=== PATIENT | male | born 1990 ===

== ENCOUNTER 2017-01-23 14:04 | Observation (INO) | payer MEDICAID ==
[2017-01-23] MEDS ORDERED: Sodium Chloride 0.9% 1,000 ML IV STA (15:04)
[2017-01-23] MEDS ORDERED: Iohexol 240 (50 ml) PO STA (15:04)
[2017-01-23] MEDS ORDERED: Sodium Chloride 0.9% 1,000 ML ONE ×2 (15:24→20:39)
[2017-01-23] MEDS ORDERED: Iohexol 240 (50 ml) ONE (15:24)
[2017-01-23 15:29] LABS: BASO # 0.1 K/uL (0.0-0.2); BASO % 0.3 % (0.0-2.0); HEMATOCRIT 46.3 % (35.0-51.0); LYMPH # 1.2 K/uL (1.0-4.3); MEAN CELL VOLUME 79.8 fL (80.0-94.0); MEAN CORPUSCULAR HEMOGLOBIN 25.7 pg (27.0-31.0); MEAN CORPUSCULAR HGB CONC 32.2 g/dL (33.0-37.0); MEAN PLATELET VOLUME 11.2 fL (7.2-11.7); MONO # 1.4 K/uL (0.0-0.8); MONO % 7.3 % (0.0-10.0); PLATELET COUNT 228 K/uL (130-400); RED CELL DISTRIBUTION WIDTH 12.8 % (11.5-14.5); WHITE BLOOD COUNT 19.8 K/uL (4.8-10.8)
[2017-01-23 15:38] LABS: CHLORIDE 102 mmol/L (98-107); POTASSIUM 4.8 mmol/L (3.6-5.2); SODIUM 139 mmol/L (132-148)
[2017-01-23 15:40] LABS: AST/SGOT 43 U/L (17-59); BILIRUBIN,TOTAL 1.9 mg/dL (0.2-1.3); CARBON DIOXIDE 21 mmol/L (22-30); GFR AFRICAN-AMERICAN > 60
[2017-01-23 15:41] LABS: ALB/GLOB RATIO 1.5 (1.0-2.1); ALKALINE PHOSPHATASE 46 U/L (38-126); ALT/SGPT 39 U/L (21-72); BLOOD UREA NITROGEN 9 mg/dL (9-20); CALCIUM 9.6 mg/dl (8.6-10.4); GLUCOSE,RANDOM 98 mg/dL (75-110); TOTAL PROTEIN 8.5 g/dL (6.3-8.3)
[2017-01-23 16:04] LABS: NEUTROPHIL 84 % (50-75); TOTAL CELLS COUNTED 100
[2017-01-23] MEDS ORDERED: Iohexol 350mg/ml 100 ML ONE (16:21)
--- NOTE | 2017-01-23 16:40 | C.PDOC ---
History Of Present Illness 27 year old male, with a history of Gastritis and Schizophrenia, presents to the ED with complaints of a constant stabbing left sided abdominal pain radiating to the lower back beginning at 5:30am with associated decreased appetite. Patient states he has 16 episodes of vomiting today and after the sixth episode he began to see blood. He notes last night he had an episode of loose stool but has not had any today. Patient denies chest pain, SOB, or urinary symptoms. Time Seen by Provider: 01/23/17 14:31 Chief Complaint (Nursing): Abdominal Pain History Per: Patient History/Exam Limitations: no limitations Onset/Duration Of Symptoms: Hrs Current Symptoms Are (Timing): Still Present Location Of Pain/Discomfort: LLQ Radiation Of Pain To:: Back Quality Of Discomfort: Stabbing Associated Symptoms: Vomiting. denies: Fever, Chills, Diarrhea Last Bowel Movement: Yesterday (diarrhea, no diarrhea today) Recent travel outside of the [place]: No Additional History Per: Prior Records Past Medical History Reviewed: Historical Data, Nursing Documentation, Vital Signs Vital Signs: Last Vital Signs Temp 98.3 F 01/23/17 14:23 Pulse 90 01/23/17 14:23 Resp 20 01/23/17 14:23 BP 135/90 01/23/17 14:23 Pulse Ox 100 01/23/17 18:45 - Medical History PMH: Gastritis, Schizophrenia - [facility] Procedures GROUP PSYCHOTHERAPY (07/12/16) INDIVID PSYCHOTHERAP NEC (05/22/13) OTHER GROUP THERAPY (05/22/13) Family History: States: Unknown Family Hx - Social History Hx Alcohol Use: Yes Hx Substance Use: Yes (marijuanaa) Review Of Systems Constitutional: Negative for: Fever, Chills Cardiovascular: Negative for: Chest Pain, Palpitations Respiratory: Negative for: Cough, Shortness of Breath Gastrointestinal: Positive for: Vomiting, Abdominal Pain, Diarrhea. Negative for: Nausea Genitourinary: Negative for: Dysuria, Hematuria Neurological: Negative for: Weakness, Numbness Physical Exam - Physical Exam Appears: Non-toxic, No Acute Distress Skin: Warm, Dry Head: Atraumatic, Normacephalic Eye(s): bilateral: Normal Inspection, PERRL, EOMI Oral Mucosa: Moist Chest: Symmetrical, No Deformity Cardiovascular: Rhythm Regular, No Murmur Respiratory: Normal Breath Sounds, No Rales, No Rhonchi, No Wheezing Gastrointestinal/Abdominal: Bowel Sounds (hypoactive bowel sounds ), Soft, Tenderness (to LLQ and RLQ ), No Distention, No Guarding, No Rebound, Other ( Negative Ramos's ) Extremity: Normal ROM, No Tenderness Neurological/Psych: Oriented x3, Normal Speech Gait: Steady ED Course And Treatment - Laboratory Results Result Diagrams: 01/23/17 15:23 01/23/17 15:23 O2 Sat by Pulse Oximetry: 100 (room air ) - CT Scan/US CT Abdomen and Pelvis with contrast Other Rad Studies (CT/US): Read By Radiologist, Radiology Report Reviewed CT/US Interpretation: FINDINGS: LOWER THORAX: Trace bilateral dependent atelectasis identified. There is also a small hiatal hernia. LIVER: Liver appears upper limits normal size. No gross lesion or ductal dilatation. GALLBLADDER AND BILE DUCTS: Unremarkable. PANCREAS: Unremarkable. No gross lesion or ductal dilatation. SPLEEN: Unremarkable. ADRENALS: Unremarkable. No mass. KIDNEYS AND URETERS: Unremarkable. No hydronephrosis. No solid mass. VASCULATURE: Unremarkable. No aortic aneurysm. BOWEL: Mural thickening is suspected throughout the colon suspicious for colitis. I am unable to evaluate the small bowel for potential enterocolitis and this is not excluded. Lack oral contrast limits the evaluation with the small-bowel largely collapsed throughout. APPENDIX: Not identified. PERITONEUM: Unremarkable. No free fluid. No free air. LYMPH NODES: Unremarkable. No enlarged lymph nodes. BLADDER: Unremarkable. REPRODUCTIVE: Unremarkable. BONES: No acute fracture. OTHER FINDINGS: None. IMPRESSION: 1. Findings suspicious for pancolitis. There is difficult to completely exclude enterocolitis due lack of oral contrast and collapsed small bowel loops diffusely. No ascites or abscess appreciated. 2. Remainder the examination appears unremarkable. Progress Note: Labs and abdomen pelvis CT was ordered. Patient was given Protonix, Zofran, and IV fluids. Ct shows pancolitis, patient still c/o pain. Cipro and Flagyl IV ordered. Case was d/w who accepted patient for observation. Disposition - Disposition Disposition: HOSPITALIZED Disposition Time: 18:45 Condition: FAIR Forms: [facility] ([place]) - Clinical Impression Clinical Impression: Pancolitis - PA / EMISSIONS ENGINEER / Resident Statement MD/DO has reviewed & agrees with the documentation as recorded. - Scribe Statement The provider has reviewed the documentation as recorded by the Scribe Delilah Smith All medical record entries made by the Nenaibjenaro were at my direction and personally dictated by me. I have reviewed the chart and agree that the record accurately reflects my personal performance of the history, physical exam, medical decision making, and the department course for this patient. I have also personally directed, reviewed, and agree with the discharge instructions and disposition. Decision To Admit - Pt Status Changed To: Hospital Disposition Of: Observation - . Bed Request Type: Regular Admitting Physician: Jt Holm Patient Diagnosis: Pancolitis
[2017-01-23 17:34] LABS: RBC URINE < 1 /hpf (0-3); URINE BILIRUBIN NEGATIVE (NEGATIVE); URINE BLOOD NEGATIVE (NEGATIVE); URINE COLOR Yellow (YELLOW); URINE GLUCOSE (UA) NORMAL (Normal); URINE KETONE NEGATIVE (NEGATIVE); URINE LEUKOCYTE ESTERASE NEG Leu/uL (Negative); URINE PROTEIN NEGATIVE (NEGATIVE); URINE UROBILINOGEN NORMAL mg/dL (0.2-1.0)
--- NOTE | 2017-01-23 17:53 | CT ---
PROCEDURE: CT Abdomen and Pelvis with contrast HISTORY: abd pain, vomiting COMPARISON: None. TECHNIQUE: Contrast dose: Omnipaque 351 100 cc. Radiation dose: Total exam DLP = 291.44 mGy-cm. This CT exam was performed using one or more of the following dose reduction techniques: Automated exposure control, adjustment of the mA and/or kV according to patient size, and/or use of iterative reconstruction technique. FINDINGS: LOWER THORAX: Trace bilateral dependent atelectasis identified. There is also a small hiatal hernia. LIVER: Liver appears upper limits normal size. No gross lesion or ductal dilatation. GALLBLADDER AND BILE DUCTS: Unremarkable. PANCREAS: Unremarkable. No gross lesion or ductal dilatation. SPLEEN: Unremarkable. ADRENALS: Unremarkable. No mass. KIDNEYS AND URETERS: Unremarkable. No hydronephrosis. No solid mass. VASCULATURE: Unremarkable. No aortic aneurysm. BOWEL: Mural thickening is suspected throughout the colon suspicious for colitis. I am unable to evaluate the small bowel for potential enterocolitis and this is not excluded. Lack oral contrast limits the evaluation with the small-bowel largely collapsed throughout. APPENDIX: Not identified. PERITONEUM: Unremarkable. No free fluid. No free air. LYMPH NODES: Unremarkable. No enlarged lymph nodes. BLADDER: Unremarkable. REPRODUCTIVE: Unremarkable. BONES: No acute fracture. OTHER FINDINGS: None. IMPRESSION: 1. Findings suspicious for pancolitis. There is difficult to completely exclude enterocolitis due lack of oral contrast and collapsed small bowel loops diffusely. No ascites or abscess appreciated. 2. Remainder the examination appears unremarkable.
[2017-01-23] MEDS ORDERED: metroNIDAZOLE IV 500 mg/100 ml 500 MG/100 ML BAG IV STA (18:43)
[2017-01-23] MEDS ORDERED: Ciprofloxacin 400mg/200ml D5W 400 MG/200 ML BAG IV STA (18:43)
[2017-01-23] MEDS ORDERED: metroNIDAZOLE IV 500 mg/100 ml 500 MG/100 ML BAG ONE (18:51)
[2017-01-23] MEDS ORDERED: Ciprofloxacin 400mg/200ml D5W 400 MG/200 ML BAG IVPB ONE (20:39)
[2017-01-23] MEDS: Sodium Chloride 0.9% 1,000 ML IV SCH (20:47)
[2017-01-23 21:47] VITALS: RESP 20
--- NOTE | 2017-01-23 23:34 | CP.PCM.HP ---
History of Present Illness - History of Present Illness History of Present Illness: 27 year old male, with a history of Gastritis and Schizophrenia, presents to the ED with complaints of a constant stabbing left sided abdominal pain radiating to the lower back beginning at 5:30am with associated decreased appetite. Patient states he has 16 episodes of vomiting today and after the sixth episode he began to see blood. He notes last night he had an episode of loose stool but has not had any today. Patient denies chest pain, SOB, or urinary symptoms. Past Patient History - Past Medical History & Family History Past Medical History?: No - Past Social History Smoking Status: Former Smoker - CARDIAC Hx Hypertension: No - PULMONARY Hx Respiratory Disorders: No - NEUROLOGICAL Hx Seizures: No - HEENT Hx HEENT Problems: No - RENAL Hx Chronic Kidney Disease: No - ENDOCRINE/METABOLIC Hx Endocrine Disorders: No - HEMATOLOGICAL/ONCOLOGICAL Hx Human Immunodeficiency Virus (HIV): No - INTEGUMENTARY Hx Dermatological Problems: No - MUSCULOSKELETAL/RHEUMATOLOGICAL Hx Falls: No - GASTROINTESTINAL Hx Gastritis: Yes - GENITOURINARY/GYNECOLOGICAL Hx Sexually Transmitted Disorders: No - PSYCHIATRIC Hx Psychophysiologic Disorder: Yes Hx Schizophrenia: Yes Hx Substance Use: Yes (marijuana) - SURGICAL HISTORY Hx Surgeries: No - ANESTHESIA Hx Anesthesia: Yes Hx Anesthesia Reactions: No Hx Malignant Hyperthermia: No Has any member of the family had a problem w/ anesthesia?: No Meds Allergies/Adverse Reactions: Allergies Allergy/AdvReac Type Severity Reaction Status Date / Time No Known Allergies Allergy Verified 01/23/17 14:25 Results - Vital Signs Recent Vital Signs: Last Vital Signs Temp 98.3 F 01/23/17 21:00 Pulse 61 01/23/17 21:00 Resp 20 01/23/17 22:11 BP 135/68 01/23/17 21:00 Pulse Ox 99 01/23/17 21:00 - Labs Result Diagrams: 01/23/17 15:23 01/23/17 15:23 Labs: Laboratory Results - last 24 hr 01/23/17 01/23/17 01/23/17 15:23 15:23 17:20 WBC 19.8 H RBC 5.81 Hgb 14.9 Hct 46.3 MCV 79.8 L MCH 25.7 L MCHC 32.2 L RDW 12.8 Plt Count 228 MPV 11.2 Neut % (Auto) 86.4 H Lymph % (Auto) 6.0 L [place] % (Auto) 7.3 Eos % (Auto) 0.0 Baso % (Auto) 0.3 Neut # 17.1 H Lymph # 1.2 [place] # 1.4 H Eos # 0.0 Baso # 0.1 Neutrophils % (Manual) 84 H Band Neutrophils % 1 Lymphocytes % (Manual) 10 L Monocytes % (Manual) 5 Platelet Estimate Normal RBC Morphology Normal Sodium 139 Potassium 4.8 Chloride 102 Carbon Dioxide 21 L Anion Gap 21 H BUN 9 Creatinine 0.9 Est GFR ( Amer) > 60 Est GFR (Non-Af Amer) > 60 Random Glucose 98 Calcium 9.6 Total Bilirubin 1.9 H AST 43 ALT 39 Alkaline Phosphatase 46 Total Protein 8.5 H Albumin 5.2 H Globulin 3.3 Albumin/Globulin Ratio 1.5 Lipase 100 Urine Color Yellow Urine Clarity Clear Urine pH 8.0 Ur Specific [place] 1.016 Urine Protein Negative Urine Glucose (UA) Normal Urine Ketones Negative Urine Blood Negative Urine Nitrate Negative Urine Bilirubin Negative Urine Urobilinogen Normal Ur Leukocyte Esterase Neg Urine RBC (Auto) < 1 Ur Squamous Epith Cells < 1 Urine Opiates Screen Urine Methadone Screen Ur Barbiturates Screen Ur Phencyclidine Scrn Ur Amphetamines Screen U Benzodiazepines Scrn U Oth Cocaine Metabols U Cannabinoids Screen 01/23/17 17:20 WBC RBC Hgb Hct MCV MCH MCHC RDW Plt Count MPV Neut % (Auto) Lymph % (Auto) [place] % (Auto) Eos % (Auto) Baso % (Auto) Neut # Lymph # [place] # Eos # Baso # Neutrophils % (Manual) Band Neutrophils % Lymphocytes % (Manual) Monocytes % (Manual) Platelet Estimate RBC Morphology Sodium Potassium Chloride Carbon Dioxide Anion Gap BUN Creatinine Est GFR ( Amer) Est GFR (Non-Af Amer) Random Glucose Calcium Total Bilirubin AST ALT Alkaline Phosphatase Total Protein Albumin Globulin Albumin/Globulin Ratio Lipase Urine Color Urine Clarity Urine pH Ur Specific [place] Urine Protein Urine Glucose (UA) Urine Ketones Urine Blood Urine Nitrate Urine Bilirubin Urine Urobilinogen Ur Leukocyte Esterase Urine RBC (Auto) Ur Squamous Epith Cells Urine Opiates Screen Negative Urine Methadone Screen Negative Ur Barbiturates Screen Negative Ur Phencyclidine Scrn Negative Ur Amphetamines Screen Negative U Benzodiazepines Scrn Negative U Oth Cocaine Metabols Negative U Cannabinoids Screen Positive
[2017-01-24] MEDS: metroNIDAZOLE IV 500 mg/100 ml 500 MG/100 ML BAG IVPB SCH ×3 (03:12→18:59)
[2017-01-24] MEDS: Sodium Chloride 0.9% 1,000 ML IV SCH ×3 (04:28→21:44)
[2017-01-24] MEDS: Ciprofloxacin 400mg/200ml D5W 400 MG/200 ML BAG IVPB SCH ×2 (07:42→19:01)
[2017-01-24 08:03] LABS: BASO % 0.4 % (0.0-2.0); EOS % 0.2 % (0.0-4.0); HEMATOCRIT 40.5 % (35.0-51.0); LYMPH # 2.5 K/uL (1.0-4.3); LYMPH % 21.1 % (20.0-40.0); MEAN CELL VOLUME 79.8 fL (80.0-94.0); MEAN CORPUSCULAR HGB CONC 32.6 g/dL (33.0-37.0); MEAN PLATELET VOLUME 10.6 fL (7.2-11.7); MONO # 1.4 K/uL (0.0-0.8); MONO % 12.1 % (0.0-10.0); RED CELL DISTRIBUTION WIDTH 12.8 % (11.5-14.5); WHITE BLOOD COUNT 11.6 K/uL (4.8-10.8)
[2017-01-24 08:18] LABS: CHLORIDE 103 mmol/L (98-107); SODIUM 142 mmol/L (132-148)
[2017-01-24 08:21] LABS: CARBON DIOXIDE 26 mmol/L (22-30); GFR AFRICAN-AMERICAN > 60
[2017-01-24 08:22] LABS: BLOOD UREA NITROGEN 7 mg/dL (9-20); CALCIUM 9.2 mg/dl (8.6-10.4); GLUCOSE,RANDOM 74 mg/dL (75-110)
[2017-01-25] MEDS: Sodium Chloride 0.9% 1,000 ML IV SCH ×2 (01:00→10:48)
[2017-01-25] MEDS: metroNIDAZOLE IV 500 mg/100 ml 500 MG/100 ML BAG IVPB SCH ×2 (03:06→10:48)
[2017-01-25] MEDS: Ciprofloxacin 400mg/200ml D5W 400 MG/200 ML BAG IVPB SCH (06:47)
[2017-01-25 08:10] VITALS: BP 118/68; PULSE 67; TEMP 98; O2SAT 99
--- NOTE | 2017-01-25 10:24 | CP.PCM.PN ---
Subjective - Date & Time of Evaluation Date of Evaluation: 01/24/17 Time of Evaluation: 16:20 - Subjective Subjective: Pt is seen & examined, less nausea, vomitting c/o some abdomial discomfort Objective - Vital Signs/Intake and Output Vital Signs (last 24 hours): Temp Pulse Resp BP Pulse Ox 98 F 67 20 118/68 99 01/25/17 08:09 01/25/17 08:09 01/25/17 08:09 01/25/17 08:09 01/25/17 08:09 Intake and Output: 01/25/17 01/25/17 06:59 18:59 Intake Total 920 Balance 920 - Medications Medications: Current Medications Ciprofloxacin (Cipro 400mg/200ml Dsw) 400 mg in 200 mls @ 133 mls/hr IVPB Q12H [facility] Last Admin: 01/25/17 06:47 Dose: 133 mls/hr Metronidazole (Flagyl) 500 mg in 100 mls @ 100 mls/hr IVPB Q8H [facility] Last Admin: 01/25/17 03:06 Dose: 100 mls/hr Sodium Chloride (Sodium Chloride 0.9%) 1,000 mls @ 100 mls/hr IV .Q10H [facility] Last Admin: 01/25/17 01:00 Dose: Not Given Ondansetron HCl (Zofran Inj) 4 mg IVP Q4 PRN PRN Reason: Nausea/Vomiting Last Admin: 01/24/17 00:47 Dose: 4 mg Pantoprazole Sodium (Protonix Inj) 40 mg IVP DAILY [facility] Last Admin: 01/24/17 10:25 Dose: 40 mg - Labs Labs: 01/24/17 07:50 01/24/17 07:50 - Constitutional Appears: No Acute Distress - Head Exam Head Exam: ATRAUMATIC, NORMAL INSPECTION, NORMOCEPHALIC - Eye Exam Eye Exam: EOMI, Normal appearance, PERRL Pupil Exam: NORMAL ACCOMODATION, PERRL - Respiratory Exam Respiratory Exam: Clear to Ausculation Bilateral, NORMAL BREATHING PATTERN - Cardiovascular Exam Cardiovascular Exam: REGULAR RHYTHM, +S1, +S2. absent: Murmur - GI/Abdominal Exam GI & Abdominal Exam: Soft, Tenderness - Neurological Exam Neurological Exam: Alert, Awake, CN II-XII Intact, Normal Gait, Oriented x3 - Psychiatric Exam Psychiatric exam: Normal Affect, Normal Mood - Skin Skin Exam: Dry, Intact, Normal Color, Warm Assessment and Plan (1) Pancolitis Assessment & Plan: IV fluids, antibiotics continue current medical management Status: Acute (2) Schizoaffective disorder Status: Acute
--- NOTE | 2017-01-25 10:24 | CP.PCM.PN ---
Subjective - Date & Time of Evaluation Date of Evaluation: 01/25/17 Time of Evaluation: 11:00 Objective - Vital Signs/Intake and Output Vital Signs (last 24 hours): Temp Pulse Resp BP Pulse Ox 98 F 67 20 118/68 99 01/25/17 08:09 01/25/17 08:09 01/25/17 08:09 01/25/17 08:09 01/25/17 08:09 Intake and Output: 01/25/17 01/25/17 06:59 18:59 Intake Total 920 Balance 920 - Medications Medications: Current Medications Ciprofloxacin (Cipro 400mg/200ml Dsw) 400 mg in 200 mls @ 133 mls/hr IVPB Q12H [facility] Last Admin: 01/25/17 06:47 Dose: 133 mls/hr Metronidazole (Flagyl) 500 mg in 100 mls @ 100 mls/hr IVPB Q8H [facility] Last Admin: 01/25/17 03:06 Dose: 100 mls/hr Sodium Chloride (Sodium Chloride 0.9%) 1,000 mls @ 100 mls/hr IV .Q10H [facility] Last Admin: 01/25/17 01:00 Dose: Not Given Ondansetron HCl (Zofran Inj) 4 mg IVP Q4 PRN PRN Reason: Nausea/Vomiting Last Admin: 01/24/17 00:47 Dose: 4 mg Pantoprazole Sodium (Protonix Inj) 40 mg IVP DAILY [facility] Last Admin: 01/24/17 10:25 Dose: 40 mg - Labs Labs: 01/24/17 07:50 01/24/17 07:50 Assessment and Plan (1) Pancolitis Status: Acute (2) Schizoaffective disorder Status: Acute
== END 2017-01-25 16:42 | disposition home or self-care (01) ==
LOC: C.ER 14:04 → C.9E 18:35 → C.3T 20:17
PROVIDERS: ADMIT Internal Medicine; ATTEND Internal Medicine
DX: K51.00 Ulcerative (chronic) pancolitis without complications (principal); F25.9 Schizoaffective disorder, unspecified; K29.70 Gastritis, unspecified, without bleeding; Z87.891 Personal history of nicotine dependence
CPT/HCPCS: 36415; 74177; 80048; 80053; 80324; 80345; 80346; 80349; 80353; 80358; 80361; 81001; 83690; 83992; 85025; 96361; 96365; 96375; 99285; C9113; G0378; J0744; J2405; J7040; Q9966; Q9967

== ENCOUNTER 2018-01-16 17:46 | Emergency (ER) | payer MEDICAID ==
[2018-01-16 17:56] VITALS: BMI 22.6
[2018-01-16] MEDS ORDERED: Iohexol 240 (50 ml) PO STA (18:48)
--- NOTE | 2018-01-16 18:56 | C.PDOC ---
History Of Present Illness 28 year old male presents to ED complaining of abdominal pain for the last six months. Patient states his stool is narrow and is afraid he has cancer. Patient states he had a cat scan 5 months ago and was told he had colitis, but he thinks they are wrong. Patient reports he has an appointment with his PMD for next week, but he cannot wait. Patient also wants to be tested for STD. Denies fever, chills, nausea, vomiting. Time Seen by Provider: 01/16/18 18:11 Chief Complaint (Nursing): Abdominal Pain History Per: Patient History/Exam Limitations: no limitations Onset/Duration Of Symptoms: Days Current Symptoms Are (Timing): Still Present Past Medical History Reviewed: Historical Data, Nursing Documentation, Vital Signs Vital Signs: Last Vital Signs Temp 98.4 F 01/16/18 17:56 Pulse 77 01/16/18 17:56 Resp 18 01/16/18 17:56 BP 131/72 01/16/18 17:56 Pulse Ox 99 01/16/18 19:10 - Medical History PMH: Gastritis, Schizophrenia Denies: Diabetes, Hepatitis, HIV, HTN, Chronic Kidney Disease, Seizures, Sexually Transmitted Disease Surgical History: No Surg Hx - [facility] Procedures GROUP PSYCHOTHERAPY (07/12/16) INDIVID PSYCHOTHERAP NEC (05/22/13) OTHER GROUP THERAPY (05/22/13) Family History: States: No Known Family Hx - Social History Hx Alcohol Use: Yes (socially) Hx Substance Use: Yes (marijuana) - Immunization History Hx Tetanus Toxoid Vaccination: No Hx Influenza Vaccination: No Hx Pneumococcal Vaccination: No Review Of Systems Except As Marked, All Systems Reviewed And Found Negative. Constitutional: Negative for: Fever, Chills Gastrointestinal: Positive for: Abdominal Pain, Other (Narrow stool). Negative for: Nausea, Vomiting Physical Exam - Physical Exam Appears: Non-toxic, No Acute Distress Skin: Warm, Dry Head: Atraumatic, Normacephalic Eye(s): bilateral: Normal Inspection Throat: Normal, No Erythema Neck: Normal ROM Lymphatic: Normal Exam Chest: No Deformity, No Tenderness Cardiovascular: Rhythm Regular Respiratory: Normal Breath Sounds, No Rales Gastrointestinal/Abdominal: Soft, Tenderness (tenderness to lower abdomen bilaterally. ), No Distention, No Guarding, No Rebound Back: No Vertebral Tenderness, No Paraspinal Tenderness Extremity: Normal ROM, No Swelling Neurological/Psych: Oriented x3, Normal Speech, Normal Cognition ED Course And Treatment - Laboratory Results Result Diagrams: 01/16/18 19:13 01/16/18 19:13 O2 Sat by Pulse Oximetry: 99 (RA ) Pulse Ox Interpretation: Normal Progress Note: CT scan of abd pelvis, labs ordered. Rocephin and Zithromax given. 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 - Scribe Statement The provider has reviewed the documentation as recorded by the Scribe Connor Pritchard All medical record entries made by the Scribe were at my direction and personally dictated by me. I have reviewed the chart and agree that the record accurately reflects my personal performance of the history, physical exam, medical decision making, and the department course for this patient. I have also personally directed, reviewed, and agree with the discharge instructions and disposition. Physician Patient Turnover Patient Signed Over To: Luiz Santana DO Handoff Comments: pending CT report and dispo
[2018-01-16 19:16] LABS: BASO # 0.1 K/uL (0.0-0.2); BASO % 0.6 % (0.0-2.0); EOS # 0.1 K/uL (0.0-0.7); EOS % 0.8 % (0.0-4.0); HEMOGLOBIN 14.6 g/dL (12.0-18.0); LYMPH # 2.1 K/uL (1.0-4.3); MEAN CELL VOLUME 80.6 fL (80.0-94.0); MEAN CORPUSCULAR HEMOGLOBIN 26.4 pg (27.0-31.0); MEAN CORPUSCULAR HGB CONC 32.8 g/dL (33.0-37.0); MEAN PLATELET VOLUME 9.8 fL (7.2-11.7); MONO # 0.9 K/uL (0.0-0.8); MONO % 10.1 % (0.0-10.0); NEUT # 5.5 K/uL (1.8-7.0); NEUT % 64.5 % (50.0-75.0); RBC 5.53 Mil/uL (4.40-5.90); RED CELL DISTRIBUTION WIDTH 12.8 % (11.5-14.5); WHITE BLOOD COUNT 8.5 K/uL (4.8-10.8)
[2018-01-16 19:29] LABS: ALB/GLOB RATIO 1.7 (1.0-2.1); ALBUMIN 4.4 g/dL (3.5-5.0); ALT/SGPT 29 U/L (21-72); AST/SGOT 19 U/L (17-59); BLOOD UREA NITROGEN 13 mg/dL (9-20); CALCIUM 9.4 mg/dl (8.6-10.4); GFR NON-AFRICAN AMERICAN > 60; LIPASE 305 U/L (23-300)
[2018-01-16 19:30] LABS: URINE AMORPHOUS SEDIMENT FEW /ul (<OCC); URINE BACTERIA RARE (<OCC); URINE BILIRUBIN NEGATIVE (NEGATIVE); URINE BLOOD NEGATIVE (NEGATIVE); URINE CLARITY Hazy (Clear); URINE COLOR Yellow (YELLOW); URINE GLUCOSE (UA) NORMAL (Normal); URINE LEUKOCYTE ESTERASE NEG Leu/uL (Negative); URINE PROTEIN NEGATIVE (NEGATIVE)
[2018-01-16] MEDS ORDERED: Iohexol 240 (50 ml) ONE (19:32)
[2018-01-16] MEDS ORDERED: Iodixanol 320 MG/ML 100 ML BOTTLE IV ONE (20:26)
[2018-01-16] MEDS ORDERED: cefTRIAXone (Rocephin) 250 mg Inj IM STA (22:19)
[2018-01-16 23:28] VITALS: BP 120/80; PULSE 80; RESP 14; TEMP 98; O2SAT 98
--- NOTE | 2018-01-17 08:49 | CT ---
Date of service: 01/16/2018 PROCEDURE: CT Abdomen and Pelvis with contrast HISTORY: abd pain COMPARISON: CT scan of the abdomen and pelvis dated 01/23/2017. TECHNIQUE: Contrast dose: 100 mL Visipaque 320 Radiation dose: Total exam DLP = 298.7 mGy-cm. This CT exam was performed using one or more of the following dose reduction techniques: Automated exposure control, adjustment of the mA and/or kV according to patient size, and/or use of iterative reconstruction technique. FINDINGS: LOWER THORAX: Unremarkable. LIVER: Unremarkable. No gross lesion or ductal dilatation. GALLBLADDER AND BILE DUCTS: Unremarkable. PANCREAS: Unremarkable. No gross lesion or ductal dilatation. SPLEEN: Unremarkable. ADRENALS: Unremarkable. No mass. KIDNEYS AND URETERS: Unremarkable. No hydronephrosis. No solid mass. VASCULATURE: Unremarkable. No aortic aneurysm. BOWEL: Unremarkable. No obstruction. No gross mural thickening. APPENDIX: Normal appendix. PERITONEUM: Unremarkable. No free fluid. No free air. LYMPH NODES: Unremarkable. No enlarged lymph nodes. BLADDER: Unremarkable. REPRODUCTIVE: Unremarkable. BONES: No acute fracture. OTHER FINDINGS: None. IMPRESSION: No acute abdominal pelvic pathology.
== END 2018-01-16 23:00 | disposition home or self-care (01) ==
LOC: C.ER 17:46
DX: R10.9 Unspecified abdominal pain (principal); F20.9 Schizophrenia, unspecified
CPT/HCPCS: 74177; 80053; 81001; 83690; 85025; 87491; 87591; 96372; 99283; J0696; Q9966; Q9967

== ENCOUNTER 2018-01-19 14:13 | Emergency (ER) | payer MEDICAID ==
[2018-01-19 14:35] VITALS: BMI 23.3
[2018-01-19 14:43] VITALS: RESP 18; O2SAT 100
[2018-01-19] MEDS ORDERED: Tdap Vaccine 0.5 ml Vial (10-64 yrs) IM ONE ×2 (15:56→16:05)
--- NOTE | 2018-01-19 16:17 | RAD ---
Date of service: 01/19/2018 PROCEDURE: Right Knee Radiographs. HISTORY: s/p trauma COMPARISON: None. FINDINGS: BONES: Normal. No fracture. JOINTS: Normal. No osteoarthritis. JOINT EFFUSION: Suprapatellar effusion suggested OTHER FINDINGS: None. IMPRESSION: No fracture. Suprapatellar joint effusion suggested
--- NOTE | 2018-01-19 16:19 | RAD ---
PROCEDURE: Right Hand Radiographs. HISTORY: punched a door, swelling to dorsum COMPARISON: None. FINDINGS: BONES: No acute fracture appreciated. Deformity of 5th metacarpal compatible with old healed trauma. JOINTS: Normal. No osteoarthritic changes. SOFT TISSUES: Soft tissue dorsal swelling over metacarpals OTHER FINDINGS: A well corticated ossification possibly contiguous with an elongated ulnar styloid noted. Developmental variant versus old trauma here IMPRESSION: No acute fracture seen. Suspect old healed fracture deformity 4th metacarpal. Currently dorsal soft tissue swelling over metacarpals. Other findings as above.
[2018-01-19 16:33] VITALS: BP 129/81; PULSE 64; TEMP 99.1
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
== END 2018-01-19 18:53 | disposition home or self-care (01) ==
LOC: C.ER 14:13
DX: M25.461 Effusion, right knee (principal); Z23 Encounter for immunization; F20.9 Schizophrenia, unspecified